=== PATIENT | male | born 1960 | race Caucasian/White ===

== ENCOUNTER 2016-07-25 06:55 | Day surgery (SDC) | payer OTHER ==
--- NOTE | ~2016-07-25 | EGD ---
EGD REPORT [facility] [address] [place] [address] NAME: INDIRA ARRIOLA : 60 STATUS : REG [facility]#: [id number] AGE: 55 ADM/REG DATE : 07/25/16 MR#: [id number] REPORT SERV DATE: 07/25/16 DICTATED BY: PHILIPPE STEVENSON DATE: 07/25/16 REPORT STATUS : Draft [facility]ANS[facility]IBED [facility]: [facility] DATE: 07/25/16 Endoscopy Center Patient Name: Indira Arriola Date of : 1960 Attending MD: PHILIPPE STEVENSON MD Procedure Date No Time: 07/25/2016 Procedure: Upper GI endoscopy Indications: Heartburn; Omeprazole 20mg daily. Patient Profile: Informed consent was obtained from the patient by me prior to the procedure. Risks, benefits, and alternatives were discussed including the risk of bleeding, perforation, infection, reaction to medicine, missed lesion, and cardiopulmonary complications. Referring MD: YUE SHAFFER Medicines: Monitored Anesthesia Care Complications: No immediate complications. Procedure: Pre-Anesthesia Assessment: - ASA Grade Assessment: III - A patient with severe systemic disease. After obtaining informed consent, the endoscope was passed under direct vision. Throughout the procedure, the patient's blood pressure, pulse, and oxygen saturations were monitored continuously. The GIF [id number] was introduced through the mouth, and advanced to the second part of duodenum. The endoscope was withdrawn with careful examination all mucosal surfaces including retroflexion stomach. The upper GI endoscopy was accomplished without difficulty. The patient tolerated the procedure well. Findings: The first part of the duodenum and 2nd part of the duodenum were normal. Biopsies were taken with a cold forceps for histology. The cardia, gastric antrum and gastric fundus (on retroflexion) were normal. Patchy mildly erythematous mucosa was found in the gastric body. Biopsies were taken with a cold forceps for histology. The examined esophagus was normal. The esophagus and gastroesophageal junction were examined with white light. There was no visual evidence of Nick's esophagus. A single 5 mm sessile polyp was found in the gastric body. The polyp was removed with a cold biopsy forceps. Resection and retrieval were complete. Impression: - Normal first part of the duodenum and 2nd part of the EGD REPORT [address] [place]. [address] NAME: INDIRA ARRIOLA : [birth year] STATUS : REG [facility]#: [id number] AGE: 55 ADM/REG DATE : 07/25/16 MR#: [id number] REPORT SERV DATE: 07/25/16 DICTATED BY: PHILIPPE STEVENSON DATE: 07/25/16 REPORT STATUS : Draft TRANSCRIBED BY: [employer] DATE: 07/25/16 duodenum. Biopsied. - Normal cardia, antrum and gastric fundus. - Erythematous mucosa in the gastric body. Biopsied. - Normal esophagus. - There is no endoscopic evidence of Nick's esophagus. - A single gastric polyp. Resected and retrieved. Recommendation: - Patient has a contact number available for emergencies. The signs and symptoms of potential delayed complications were discussed with the patient. Return to normal activities tomorrow. Written discharge instructions were provided to the patient. - Regular diet. - Continue present medications. - Await pathology results. - Taper Omeprazole to use as needed, as tolerated. Procedure Code(s): --- Professional --- 91520, Esophagogastroduodenoscopy, flexible, transoral; with biopsy, single or multiple Diagnosis Code(s): --- Professional --- K31.9, Disease of stomach and duodenum, unspecified K31.7, Polyp of stomach and duodenum R12, Heartburn CPT copyright 2013 [employer]. All rights reserved. The codes documented in this report are preliminary and upon chisel mortiser operator review may be revised to meet current compliance requirements. PHILIPPE STEVENSON MD 07/25/2016 7:45 AM This report has been signed electronically. Number of Addenda: 0 Note Initiated On: 07/25/2016 7:32 AM Scope Withdrawal Time 0 hours 0 minutes 0 seconds [address] [id number]
--- NOTE | ~2016-07-25 | EGD ---
EGD REPORT [facility] [address] [address] NAME: INDIRA ARRIOLA : 60 STATUS : [facility]#: [id number] AGE: 55 ADM/REG DATE : 07/25/16 MR#: [id number] REPORT SERV DATE: 07/31/16 DICTATED BY: DATE: REPORT STATUS : Draft [facility]ANSCRIBED BY: [facility] DATE: 07/31/16 Endoscopy Center Patient Name: Indira Arriola Date of : 1960 Attending MD: PHILIPPE STEVENSON MD Procedure Date No Time: 07/25/2016 Procedure: Colonoscopy Indications: Screening for colorectal malignant neoplasm; average risk; index exam. Patient Profile: Informed consent was obtained from the patient by me prior to the procedure. Risks, benefits, and alternatives were discussed including the risk of bleeding, perforation, infection, reaction to medicine, missed lesion, and cardiopulmonary complications. Referring MD: YUE SHAFFER Medicines: Monitored Anesthesia Care Complications: No immediate complications. Procedure: Pre-Anesthesia Assessment: - ASA Grade Assessment: III - A patient with severe systemic disease. After I obtained informed consent, the scope was passed under direct vision. Throughout the procedure, the patient's blood pressure, pulse, and oxygen saturations were monitored continuously. The CF [id number] was introduced through the anus and advanced to the cecum, identified by appendiceal orifice and ileocecal valve. The colonoscope was slowly withdrawn with careful examination all mucosal surfaces including specific attention around flexures and tip deflection behind folds; retroflexion performed in rectum.The colonoscopy was performed without difficulty. The patient tolerated the procedure well. The quality of the bowel preparation was adequate. The ileocecal valve, appendiceal orifice and rectum were photographed. Findings: Two flat polyps were found in the descending colon. The polyps were 5 to 7 mm in size. These polyps were removed with a cold biopsy forceps. Resection and retrieval were complete. A flat polyp was found in the sigmoid colon. The polyp was 5 mm in size. The polyp was removed with a cold biopsy forceps. Resection and retrieval were complete. Two flat polyps were found in the rectum. The polyps were 5 mm in size. These polyps were removed with a cold biopsy forceps. Resection and retrieval were complete. EGD REPORT [address] [address] NAME: INDIRA ARRIOLA : 60 STATUS : [facility] PAT#: [id number] AGE: 55 ADM/REG DATE : 07/25/16 MR#: [id number] REPORT SERV DATE: 07/31/16 DICTATED BY: DATE: REPORT STATUS : Draft TRANSCRIBED BY: [email or web address] DATE: 07/31/16 A few small-mouthed diverticula were found in the sigmoid colon. Impression: - Two 5 to 7 mm polyps in the descending colon. Resected and retrieved. - One 5 mm polyp in the sigmoid colon. Resected and retrieved. - Two 5 mm polyps in the rectum. Resected and retrieved. - Diverticulosis in the sigmoid colon. Recommendation: - Patient has a contact number available for emergencies. The signs and symptoms of potential delayed complications were discussed with the patient. Return to normal activities tomorrow. Written discharge instructions were provided to the patient. - Regular diet. - Continue present medications. - Await pathology results. - Repeat colonoscopy for surveillance based on pathology results. Procedure Code(s): --- Professional --- 97607, Colonoscopy, flexible, proximal to splenic flexure; with biopsy, single or multiple Diagnosis Code(s): --- Professional --- K62.1, Rectal polyp D12.5, Benign neoplasm of sigmoid colon D12.4, Benign neoplasm of descending colon K57.30, Diverticulosis of large intestine without perforation or abscess without bleeding Z12.11, Encounter for screening for malignant neoplasm of colon CPT copyright 2013 [employer]. All rights reserved. The codes documented in this report are preliminary and upon statement request clerk review may be revised to meet current compliance requirements. PHILIPPE STEVENSON MD 07/25/2016 8:04 AM This report has been signed electronically. Number of Addenda: 0 Note Initiated On: 07/25/2016 7:31 AM Scope Withdrawal Time 0 hours 10 minutes 21 seconds EGD REPORT [facility] [address] [address] NAME: INDIRA ARRIOLA : 60 STATUS : [facility]#: [id number] AGE: 55 ADM/REG DATE : 07/25/16 MR#: [id number] REPORT SERV DATE: 07/31/16 DICTATED BY: DATE: REPORT STATUS : Draft TRANSCRIBED BY: [employer] DATE: 07/31/16 [address] [id number]
--- NOTE | ~2016-07-25 | EGD ---
EGD REPORT [facility] [address] [address] NAME: INDIRA ARRIOLA : 60 STATUS : REG [facility]#: [id number] AGE: 55 ADM/REG DATE : 07/25/16 MR#: [id number] REPORT SERV DATE: 07/25/16 DICTATED BY: DATE: REPORT STATUS : Draft [facility]IB[facility]: [facility] DATE: 07/25/16 Endoscopy Center Patient Name: Indira Arriola Date of : 1960 Attending MD: PHILIPPE STEVENSON MD Procedure Date No Time: 07/25/2016 Procedure: Colonoscopy Indications: Screening for colorectal malignant neoplasm; average risk; index exam. Patient Profile: Informed consent was obtained from the patient by me prior to the procedure. Risks, benefits, and alternatives were discussed including the risk of bleeding, perforation, infection, reaction to medicine, missed lesion, and cardiopulmonary complications. Referring MD: YUE SHAFFER Medicines: Monitored Anesthesia Care Complications: No immediate complications. Procedure: Pre-Anesthesia Assessment: - ASA Grade Assessment: III - A patient with severe systemic disease. After I obtained informed consent, the scope was passed under direct vision. Throughout the procedure, the patient's blood pressure, pulse, and oxygen saturations were monitored continuously. The CF [id number] was introduced through the anus and advanced to the cecum, identified by appendiceal orifice and ileocecal valve. The colonoscope was slowly withdrawn with careful examination all mucosal surfaces including specific attention around flexures and tip deflection behind folds; retroflexion performed in rectum. The colonoscopy was performed without difficulty. The patient tolerated the procedure well. The quality of the bowel preparation was adequate. The ileocecal valve, appendiceal orifice and rectum were photographed. Findings: Two flat polyps were found in the descending colon. The polyps were 5 to 7 mm in size. These polyps were removed with a cold biopsy forceps. Resection and retrieval were complete. A flat polyp was found in the sigmoid colon. The polyp was 5 mm in size. The polyp was removed with a cold biopsy forceps. Resection and retrieval were complete. Two flat polyps were found in the rectum. The polyps were 5 mm in size. These polyps were removed with a cold biopsy forceps. Resection and retrieval were complete. EGD REPORT [address] [address] NAME: INDIRA ARRIOLA : 60 STATUS : [facility] PAT#: [id number] AGE: 55 ADM/REG DATE : 07/25/16 MR#: [id number] REPORT SERV DATE: 07/25/16 DICTATED BY: DATE: REPORT STATUS : Draft TRANSCRIBED BY: [employer] DATE: 07/25/16 A few small-mouthed diverticula were found in the sigmoid colon. Impression: - Two 5 to 7 mm polyps in the descending colon. Resected and retrieved. - One 5 mm polyp in the sigmoid colon. Resected and retrieved. - Two 5 mm polyps in the rectum. Resected and retrieved. - Diverticulosis in the sigmoid colon. Recommendation: - Patient has a contact number available for emergencies. The signs and symptoms of potential delayed complications were discussed with the patient. Return to normal activities tomorrow. Written discharge instructions were provided to the patient. - Regular diet. - Continue present medications. - Await pathology results. - Repeat colonoscopy for surveillance based on pathology results. Procedure Code(s): --- Professional --- 69984, Colonoscopy, flexible, proximal to splenic flexure; with biopsy, single or multiple Diagnosis Code(s): --- Professional --- K62.1, Rectal polyp D12.5, Benign neoplasm of sigmoid colon D12.4, Benign neoplasm of descending colon K57.30, Diverticulosis of large intestine without perforation or abscess without bleeding Z12.11, Encounter for screening for malignant neoplasm of colon CPT copyright 2013 [employer]. All rights reserved. The codes documented in this report are preliminary and upon qc manager review may be revised to meet current compliance requirements. PHILIPPE STEVENSON MD 07/25/2016 8:04 AM This report has been signed electronically. Number of Addenda: 0 Note Initiated On: 07/25/2016 7:31 AM Scope Withdrawal Time 0 hours 10 minutes 21 seconds EGD REPORT [facility] [address] [address] NAME: INDIRA ARRIOLA : 60 STATUS : [facility] [place] PAT#: [id number] AGE: 55 ADM/REG DATE : 07/25/16 MR#: [id number] REPORT SERV DATE: 07/25/16 DICTATED BY: DATE: REPORT STATUS : Draft TRANSCRIBED BY: [employer] DATE: 07/25/16 [address] [address]
[~2016-07-25 06:55] MED LIST: ALTA5 PO; CO Q-10100 MG PO; CRESTOR20 MG PO; DHE1 PO; FEMARA PO; HALF81 PO; LOP25 PO; MAXIMUM D3 PO; NITROSTAT0.4 MG SL; PRILO PO; TESTOSTERONE PELLETS
== END 2016-07-25 23:59 | disposition home or self-care (01) ==
LOC: DMU 06:55
PROVIDERS: Internal Medicine Gastroenterology
PROC: 0DBN8ZZ Excision of Sigmoid Colon, Via Natural or Artificial Opening Endoscopic (ICD-10-PCS; 2016-07-25)
PROC: 0DB98ZX Excision of Duodenum, Via Natural or Artificial Opening Endoscopic, Diagnostic (ICD-10-PCS; 2016-07-25)
PROC: 0DB68ZX Excision of Stomach, Via Natural or Artificial Opening Endoscopic, Diagnostic (ICD-10-PCS; 2016-07-25)
PROC: 0DBM8ZZ Excision of Descending Colon, Via Natural or Artificial Opening Endoscopic (ICD-10-PCS; principal; 2016-07-25 08:30)
PROC: 0DBP8ZZ Excision of Rectum, Via Natural or Artificial Opening Endoscopic (ICD-10-PCS; 2016-07-25 08:30)
DX: Z12.11 Encounter for screening for malignant neoplasm of colon (principal); K31.7 Polyp of stomach and duodenum; K63.5 Polyp of colon; K62.1 Rectal polyp; K57.30 Diverticulosis of large intestine without perforation or abscess without bleeding; K31.9 Disease of stomach and duodenum, unspecified; R12 Heartburn; K21.9 Gastro-esophageal reflux disease without esophagitis; G47.30 Sleep apnea, unspecified; G47.33 Obstructive sleep apnea (adult) (pediatric); Z79.899 Other long term (current) drug therapy; Z95.5 Presence of coronary angioplasty implant and graft; Z79.82 Long term (current) use of aspirin
CPT/HCPCS: 88305